=== PATIENT | female | born 1950 | race Caucasian/White ===

== ENCOUNTER → 2017-01-09 | Outpatient (CLI) | payer MEDICARE ==
[~2017-01-09] MED LIST: ALBUTEROL INH INH; BENZ2TAB6 PO; CHLO25TA4 PO; FLUT1AER INH; FOLI-17 PO; IBUP-1222 PO; LEVO125T5 PO; LISI-167 PO; MULT1TAB60 PO; OXYB5TAB7 PO; SERT100T5 PO; TRIF10TA PO; VITAMIN B1 PO; VITAMIN E PO
[2017-01-09 15:20] LABS: BLOOD UREA NITROGEN 6 mg/dL (7-18)
[2017-01-09 15:22] LABS: ASPARTATE AMINO TRANSFERASE 15 U/L (15-37)
== END | disposition home or self-care (01) ==
LOC: STAR 13:32
PROVIDERS: ATTEND Neurological Surgery
DX: Z01.818 Encounter for other preprocedural examination (principal); M48.02 Spinal stenosis, cervical region; R79.1 Abnormal coagulation profile
CPT/HCPCS: 36415; 80053; 85025; 85610; 85730; 93005

== ENCOUNTER 2017-01-23 05:31 | Inpatient (IN) | payer MEDICARE ==
[~2017-01-23] VITALS: Ht 165.1 cm; Wt 114.0 kg
[2017-01-23] MEDS ORDERED: THROMBIN 5,000 UNIT VIAL TP ONE (06:54)
[2017-01-23] MEDS ORDERED: BUPIVACAINE/PF 0.5% ONE (06:54)
[2017-01-23] MEDS ORDERED: EPINEPHRINE 1 MG/ML, 1ML ONE (06:54)
[2017-01-23] MEDS ORDERED: BACITRACIN 50,000 UNIT ONE (06:54)
[2017-01-23] MEDS: LACTATED RINGERS 1,000 ML IV SCH ×2 (07:08→12:36)
[2017-01-23] MEDS ORDERED: REMIFENTANIL 2 MG ONE (07:16)
[2017-01-23] MEDS ORDERED: KETAMINE 10 MG/ML, 20ML ONE (07:16)
[2017-01-23] MEDS ORDERED: FENTANYL PF 250 MCG/5ML ONE (07:16)
[2017-01-23] MEDS ORDERED: BACITRACIN OINT 500U/GM, 15 GM ONE (07:17)
[2017-01-23] MEDS ORDERED: PROPOFOL 10 MG/ML, 20ML ONE (07:27)
[2017-01-23] MEDS ORDERED: SUCCINYLCHOLINE 20 MG/ML, 10ML ONE (07:27)
[2017-01-23] MEDS ORDERED: ONDANSETRON 2MG/ML, 2ML ONE (07:27)
[2017-01-23] MEDS ORDERED: DEXAMETHASONE 4 MG/ML, 1ML ONE (07:27)
[2017-01-23] MEDS ORDERED: ROCURONIUM 10 MG/ML ONE (07:27)
[2017-01-23] MEDS ORDERED: METOCLOPRAMIDE 5 MG/ML, 2ML ONE (07:27)
[2017-01-23] MEDS ORDERED: CEFAZOLIN 1,000 MG ONE (07:27)
[2017-01-23] MEDS ORDERED: PROPOFOL 10 MG/ML, 50ML ONE (07:27)
[2017-01-23] MEDS ORDERED: LIDOCAINE 1%, 20ML ONE (07:27)
[2017-01-23] MEDS ORDERED: HYDROcodone/APAP 10/325 MG TABLET PO PRN (10:00)
[2017-01-23] MEDS ORDERED: BISACODYL 10 MG SUPP PR PRN (10:00)
[2017-01-23] MEDS ORDERED: LABETALOL 5MG/ML, 20ML IVPush PRN (10:00)
[2017-01-23] MEDS ORDERED: PHARMACY MAY ADJ FOR RENAL FX MC PRN (10:00)
[2017-01-23] MEDS ORDERED: HYDROmorphone 2MG TABLET PO PRN (10:00)
[2017-01-23] MEDS ORDERED: MAGNESIUM HYDROXIDE 8%, 30ML UDC PO PRN (10:00)
[2017-01-23] MEDS ORDERED: CYCLOBENZAPRINE 10 MG TABLET PO PRN (10:00)
[2017-01-23] MEDS ORDERED: PROMETHAZINE 25 MG/ML, 1ML IM PRN (10:00)
[2017-01-23] MEDS ORDERED: DIPHENHYDRAMINE 50 MG CAPSULE PO PRN (10:00)
[2017-01-23] MEDS ORDERED: SENNA/DOCUSATE TABLET PO PRN (10:00)
[2017-01-23] MEDS ORDERED: ALBUTEROL INH SCH (10:00)
[2017-01-23] MEDS ORDERED: ONDANSETRON 2MG/ML, 2ML IVPush PRN ×2 (10:00→11:00)
[2017-01-23] MEDS ORDERED: FENTANYL PF 100 MCG/2ML ONE (10:21)
[2017-01-23] MEDS ORDERED: HYDROmorphone 1 MG/ML, 1ML ONE (10:21)
[2017-01-23] MEDS: HYDROmorphone 1 MG/ML, 1ML IV PRN ×4 (10:30→11:00)
[2017-01-23] MEDS ORDERED: ALBUTEROL SULFATE 2.5 MG/3 ML ONE (10:31)
[2017-01-23] MEDS ORDERED: LABETALOL 5MG/ML, 20ML ONE (10:57)
[2017-01-23] MEDS ORDERED: OXYcodone 5 MG/5 ML ORAL.SOL UDC PO PRN (11:00)
[2017-01-23] MEDS ORDERED: ALBUTEROL SULFATE 2.5 MG/3 ML NPPB PRN (11:00)
[2017-01-23] MEDS ORDERED: hydrALAzine 20 MG/ML, 1ML IV PRN (11:00)
[2017-01-23] MEDS ORDERED: HYDROcodone/APAP 7.5-325MG/15ML UDC PO PRN (11:00)
[2017-01-23] MEDS ORDERED: FENTANYL PF 100 MCG/2ML IV PRN (11:00)
[2017-01-23] MEDS ORDERED: ACETAMINOPHEN 325 MG TABLET PO PRN (11:00)
[2017-01-23] MEDS: LABETALOL 5MG/ML, 20ML IV PRN ×2 (11:03→11:24)
[2017-01-23] MEDS ORDERED: [UNRECOGNIZED DRUG - REMARK] MC SCH (12:30)
[2017-01-23] MEDS: NS + 20MEQ KCL 1,000 ML IV SCH (13:25)
[2017-01-23] MEDS: CEFAZOLIN PMX 1GM/50ML 50 ML IVPB SCH (17:30)
[2017-01-23 20:20] VITALS: BP 134/83
[2017-01-23] MEDS: BENZTROPINE 1 MG TABLET PO SCH (20:41)
[2017-01-23] MEDS: TRIFLUOPERAZINE 2 MG PO SCH (20:43)
[2017-01-23] MEDS: SODIUM CHLORIDE FLUSH 10ML SYR IVF SCH (20:46)
[2017-01-23] MEDS: HYDROcodone/APAP 5/325 TABLET PO PRN (20:55)
[2017-01-23] MEDS ORDERED: TRIFLUOPERAZINE 5 MG PO SCH (21:00)
[2017-01-23] MEDS ORDERED: TRIFLUOPERAZINE 2 MG PO SCH (21:00)
[2017-01-24] VITALS: BP 130/81
[2017-01-24] MEDS: CEFAZOLIN PMX 1GM/50ML 50 ML IVPB SCH (00:03)
[2017-01-24] MEDS ORDERED: ALBUTEROL/IPRATROPIUM 2.5MG/0.5MG, 3 ML NPPB PRN (03:00)
[2017-01-24 03:52] VITALS: BP 124/82
[2017-01-24] MEDS: HYDROcodone/APAP 5/325 TABLET PO PRN ×5 (04:07→21:38)
[2017-01-24] MEDS: NS + 20MEQ KCL 1,000 ML IV SCH ×2 (04:08→15:58)
[2017-01-24 06:48] VITALS: BP 116/78
[2017-01-24] MEDS: FLUTICASONE/VILANTEROL 100-25MCG/INH INH SCH (08:35)
[2017-01-24] MEDS: SODIUM CHLORIDE FLUSH 10ML SYR IVF SCH ×2 (08:36→21:37)
[2017-01-24] MEDS: BENZTROPINE 1 MG TABLET PO SCH ×2 (08:37→21:37)
[2017-01-24] MEDS: FOLIC ACID 1 MG TABLET PO SCH (08:38)
[2017-01-24] MEDS: OXYBUTYNIN CHLORIDE 5 MG TABLET PO SCH (08:38)
[2017-01-24] MEDS: MULTIVITAMIN 1 TABLET PO SCH (08:39)
[2017-01-24] MEDS: LISINOPRIL 10 MG TABLET PO SCH (08:40)
[2017-01-24] MEDS: LEVOTHYROXINE 125 MCG TABLET PO SCH (08:41)
[2017-01-24] MEDS: TRIFLUOPERAZINE 2 MG PO SCH ×3 (08:41→21:37)
[2017-01-24] MEDS: THIAMINE 100MG TABLET PO SCH (08:42)
[2017-01-24] MEDS: SERTRALINE 50MG TABLET PO SCH (08:42)
[2017-01-24 13:07] VITALS: BP 144/79
[2017-01-24 18:47] VITALS: BP 172/96
[2017-01-25 03:09] VITALS: BP 138/85
[2017-01-25] MEDS: HYDROcodone/APAP 5/325 TABLET PO PRN ×5 (03:33→20:10)
[2017-01-25 07:00] VITALS: BP 121/80
[2017-01-25] MEDS: NS + 20MEQ KCL 1,000 ML IV SCH ×3 (07:23→19:25)
[2017-01-25] MEDS: BENZTROPINE 1 MG TABLET PO SCH ×2 (08:01→20:10)
[2017-01-25] MEDS: FOLIC ACID 1 MG TABLET PO SCH (08:01)
[2017-01-25] MEDS: TRIFLUOPERAZINE 2 MG PO SCH ×3 (08:01→20:12)
[2017-01-25] MEDS: SERTRALINE 50MG TABLET PO SCH (08:02)
[2017-01-25] MEDS: FLUTICASONE/VILANTEROL 100-25MCG/INH INH SCH (08:02)
[2017-01-25] MEDS: OXYBUTYNIN CHLORIDE 5 MG TABLET PO SCH (08:02)
[2017-01-25] MEDS: MULTIVITAMIN 1 TABLET PO SCH (08:02)
[2017-01-25] MEDS: THIAMINE 100MG TABLET PO SCH (08:02)
[2017-01-25] MEDS: LISINOPRIL 10 MG TABLET PO SCH (08:02)
[2017-01-25] MEDS: LEVOTHYROXINE 125 MCG TABLET PO SCH (08:03)
[2017-01-25] MEDS: SODIUM CHLORIDE FLUSH 10ML SYR IVF SCH ×2 (08:07→20:12)
[2017-01-25 13:36] VITALS: BP 139/80
[2017-01-25 19:57] VITALS: BP 122/69
[2017-01-26] MEDS: HYDROcodone/APAP 5/325 TABLET PO PRN ×6 (01:37→23:11)
[2017-01-26 03:18] VITALS: BP 118/74
[2017-01-26 08:34] VITALS: BP 121/67
[2017-01-26] MEDS: FLUTICASONE/VILANTEROL 100-25MCG/INH INH SCH (09:00)
[2017-01-26] MEDS: OXYBUTYNIN CHLORIDE 5 MG TABLET PO SCH (09:17)
[2017-01-26] MEDS: FOLIC ACID 1 MG TABLET PO SCH (09:17)
[2017-01-26] MEDS: LISINOPRIL 10 MG TABLET PO SCH (09:17)
[2017-01-26] MEDS: SODIUM CHLORIDE FLUSH 10ML SYR IVF SCH ×2 (09:17→19:59)
[2017-01-26] MEDS: MULTIVITAMIN 1 TABLET PO SCH (09:17)
[2017-01-26] MEDS: BENZTROPINE 1 MG TABLET PO SCH ×2 (09:17→19:59)
[2017-01-26] MEDS: SERTRALINE 50MG TABLET PO SCH (09:18)
[2017-01-26] MEDS: TRIFLUOPERAZINE 2 MG PO SCH ×3 (09:18→19:59)
[2017-01-26] MEDS: LEVOTHYROXINE 125 MCG TABLET PO SCH (09:18)
[2017-01-26] MEDS: THIAMINE 100MG TABLET PO SCH (09:19)
[2017-01-26 13:59] VITALS: BP 134/81
[2017-01-26] MEDS: NS + 20MEQ KCL 1,000 ML IV SCH (19:07)
[2017-01-26 19:57] VITALS: BP 114/82
[2017-01-27 02:25] VITALS: BP 102/70
[2017-01-27] MEDS: HYDROcodone/APAP 5/325 TABLET PO PRN ×3 (03:50→12:59)
[2017-01-27 06:52] VITALS: BP 136/84
[2017-01-27] MEDS: NS + 20MEQ KCL 1,000 ML IV SCH (08:09)
[2017-01-27] MEDS: FOLIC ACID 1 MG TABLET PO SCH (08:13)
[2017-01-27] MEDS: BENZTROPINE 1 MG TABLET PO SCH (08:13)
[2017-01-27] MEDS: SODIUM CHLORIDE FLUSH 10ML SYR IVF SCH (08:13)
[2017-01-27] MEDS: MULTIVITAMIN 1 TABLET PO SCH (08:13)
[2017-01-27] MEDS: OXYBUTYNIN CHLORIDE 5 MG TABLET PO SCH (08:13)
[2017-01-27] MEDS: LEVOTHYROXINE 125 MCG TABLET PO SCH (08:14)
[2017-01-27] MEDS: LISINOPRIL 10 MG TABLET PO SCH (08:14)
[2017-01-27] MEDS: SERTRALINE 50MG TABLET PO SCH (08:14)
[2017-01-27] MEDS: TRIFLUOPERAZINE 2 MG PO SCH (08:14)
[2017-01-27] MEDS: THIAMINE 100MG TABLET PO SCH (08:14)
[2017-01-27] MEDS: FLUTICASONE/VILANTEROL 100-25MCG/INH INH SCH (08:17)
[2017-01-27] MEDS ORDERED: MAGNESIUM CITRATE 300ML ORAL SOL PO ONE (08:30)
[2017-01-27 15:31] VITALS: BP 146/58
== END 2017-01-27 15:50 | DRG 472 ==
LOC: OUT 05:31 → 4NOR 12:03 → OUT 23:03
PROVIDERS: ADMIT Neurological Surgery; ATTEND Neurological Surgery
PROC: 0RB30ZZ Excision of Cervical Vertebral Disc, Open Approach (ICD-10-PCS; 2017-01-23)
PROC: BR111ZZ Fluoroscopy of Cervical Disc(s) using Low Osmolar Contrast (ICD-10-PCS; 2017-01-23)
PROC: 0RG20A0 Fusion of 2 or more Cervical Vertebral Joints with Interbody Fusion Device, Anterior Approach, Anterior Column, Open Approach (ICD-10-PCS; principal; 2017-01-23 07:30)
DX: M48.02 Spinal stenosis, cervical region (principal); M47.12 Other spondylosis with myelopathy, cervical region; Z68.41 Body mass index [BMI] 40.0-44.9, adult; E11.9 Type 2 diabetes mellitus without complications; G47.33 Obstructive sleep apnea (adult) (pediatric); E66.01 Morbid (severe) obesity due to excess calories; I10 Essential (primary) hypertension; F41.9 Anxiety disorder, unspecified; J43.9 Emphysema, unspecified; F32.9 Major depressive disorder, single episode, unspecified; E03.9 Hypothyroidism, unspecified; R26.0 Ataxic gait; J02.9 Acute pharyngitis, unspecified; Z99.81 Dependence on supplemental oxygen; Z91.040 Latex allergy status; Z87.891 Personal history of nicotine dependence; Z80.9 Family history of malignant neoplasm, unspecified; Z83.3 Family history of diabetes mellitus; Z81.8 Family history of other mental and behavioral disorders; Z79.899 Other long term (current) drug therapy
CPT/HCPCS: 36415; 72040; 82962; 86850; 86900; 94640; C1713; C1776; J0171; J0690; J1100; J1170; J2405; J2704; J3010; J3480; J3490; J7613; C1762; J0330; J2765; J7120

== ENCOUNTER → 2018-05-25 | Outpatient (CLI) | payer MEDICARE | END | disposition home or self-care (01) | LOC: CFH 12:18 | PROVIDERS: ATTEND Obstetrics & Gynecology Gynecology | DX: Z12.31 Encounter for screening mammogram for malignant neoplasm of breast (principal); Z80.3 Family history of malignant neoplasm of breast | CPT/HCPCS: 77067 ==